=== PATIENT | male | born 1975 | race Caucasian/White ===

== ENCOUNTER 2017-05-28 16:51 | Emergency (ER) | payer MEDICARE, MEDICAID ==
--- NOTE | 2017-05-28 17:55 | RAD ---
THREE VIEWS OF THE LEFT FOOT 05/28/17 PROVIDED CLINICAL HISTORY: Left foot pain status post injury. FINDINGS: The fibular great toe sesamoid is comprised of two fragments, which could reflect fracture or congeni madison variant. No additional fracture is evident. Postoperative changes involving the left ankle are no carolyn. Alignment appears anatomic. Joint spaces appear preserved. IMPRESSION: Appearance of the fibular great toe sesamoid as described above. Please correlate with patient's site of pain. POS: [facility]
[2017-05-28] MEDS ORDERED: Ketorolac Tromethamine 60 MG/2 ML VIAL ONE (18:57)
== END 2017-05-28 19:15 | disposition home or self-care (01) ==
LOC: ERS 16:51
DX: S90.32XA Contusion of left foot, initial encounter (principal); I10 Essential (primary) hypertension; E78.5 Hyperlipidemia, unspecified; F31.9 Bipolar disorder, unspecified; F25.9 Schizoaffective disorder, unspecified; F17.210 Nicotine dependence, cigarettes, uncomplicated; X50.1XXA Overexertion from prolonged static or awkward postures, initial encounter
CPT/HCPCS: 96372; J1885

== ENCOUNTER 2018-12-12 17:24 | Emergency (ER) | payer MEDICAID, OTHER, SELFPAY ==
--- NOTE | 2018-12-12 18:08 | RAD ---
XR Hand Rt 3 View STANDARD History: Injury Comparison: None. Findings: Nondisplaced obliquely oriented fracture proximal fourth metacarpal without definite intra- articular extension. Less than 1 cortex width medial displacement. Proximal carpal row intact. Impression: Minimally displaced obliquely oriented fracture fourth metacarpal proximal diaphysis. Old fifth metacarpal proximal diaphysis fracture.
== END 2018-12-12 19:59 | disposition home or self-care (01) ==
LOC: ERS 17:24
DX: S62.314A Displaced fracture of base of fourth metacarpal bone, right hand, initial encounter for closed fracture (principal); I10 Essential (primary) hypertension; E78.5 Hyperlipidemia, unspecified; F31.9 Bipolar disorder, unspecified; F25.9 Schizoaffective disorder, unspecified; F17.210 Nicotine dependence, cigarettes, uncomplicated; Z79.899 Other long term (current) drug therapy; Y04.0XXA Assault by unarmed brawl or fight, initial encounter
CPT/HCPCS: 26605